=== PATIENT | female | born 1995 | race Caucasian/White ===

== ENCOUNTER 2017-05-03 22:02 | Emergency (ER) | payer SELFPAY ==
[2017-05-04] MEDS ORDERED: AMOXICILLIN TR/POT CLAVULANATE 500-125 MG TAB PO ONE (00:39)
[2017-05-04] MEDS ORDERED: RABIES IMMUNE GLOBULIN INJ/PF 300 UNIT/2 ML SDV IM ONE (00:39)
[2017-05-04] MEDS ORDERED: RABIES VACCINE (PCEC)/PF 2.5 UNIT/1 ML KIT IM ONE (00:45)
--- NOTE | 2017-05-04 00:46 | ER Document Report ---
ED General - General Chief Complaint: Cat bite R thumb Stated Complaint: POSSIBLE ANIMAL BITE Time Seen by Provider: 05/04/17 00:22 Notes: Patient is a 22-year-old female presents with complaint of a cat bite to the right thumb. Patient says a stray cat bit her yesterday. Her thumb hurts and therefore she came to the ER. Nose redness or swelling to the thumb. No fevers. No infections. The cat ran away and therefore she does not where the cat is in therefore we would not know how to contact animal control to quarantine it. She has no other complaints at this time. TRAVEL OUTSIDE OF THE [place] IN LAST 30 DAYS: No - Related Data Allergies/Adverse Reactions: acetaminophen [From [place]] Adverse Reaction (Verified 04/29/16 15:06) hydrocodone [From [place]] Adverse Reaction (Verified 04/29/16 15:06) Past Medical History - Social History Smoking Status: Never Smoker Frequency of alcohol use: None Drug Abuse: None Family History: Reviewed & Not Pertinent, Arthritis, CVA, DM, Hypertension, Malignancy Renal/ Medical History: Denies: Hx Peritoneal Dialysis Musculoskeltal Medical History: Reports Hx Musculoskeletal Trauma - Immunizations Immunizations up to date: Yes Hx Diphtheria, Pertussis, Tetanus Vaccination: Yes - 04/28/16 Review of Systems - Review of Systems Notes: My Normal Review Basic REVIEW OF SYSTEMS: CONSTITUTIONAL : Denies fever, chills, or sweats. Denies recent illness. GASTROINTESTINAL: Denies nausea, vomiting. MUSCULOSKELETAL: Cat Bite to thumb. SKIN: Denies rash or skin lesions. NEUROLOGICAL: Denies sensory or motor loss.. ALL OTHER SYSTEMS REVIEWED AND NEGATIVE. Physical Exam - Vital signs Vitals: Temp Pulse Resp BP Pulse Ox 98.8 F 101 H 20 115/69 99 05/03/17 22:54 05/03/17 22:54 05/03/17 22:54 05/03/17 22:54 05/03/17 22:54 - Notes Notes: General Appearance: Well nourished, alert, cooperative, no acute distress, mild obvious discomfort. Vitals: reviewed, See vital signs table. Extremities: strength 5/5 in all extremities, good pulses in all extremities, patient is a puncture wound on the medial and lateral aspect of the right thumb consistent with Bite. No redness or swelling to the thumb. She is able to flex and extend the thumb but it does have some pain with any type of movement. No redness or streaking into the hand. No foul-smelling drainage. Skin: warm, dry, appropriate color, no rash Neuro: speech clear, oriented x 3, normal affect, responds appropriately to questions. Distal sensation intact. Course - Re-evaluation Re-evalutation: 05/04/17 06:48 Being that this is a straight cath that we do not have access to we will start the patient on rabies vaccinations. She is given her first vaccination and immunoglobulin shot here. I filled out the order for the patient to receive the remaining shots over the next 4 weeks. This is been given to her and she is informed to return to the ER to have the shots performed. I have placed her on Augmentin. Currently she has no signs of infection however being that it is a Bite we have placed on antibiotics. I informed her that even though she is on antibiotics to stool is a risk that she could still develop an infection and therefore she should return to the ER immediately if there is any swelling or redness to the thumb, if she has fevers, or if she has worsening pain. Patient agrees with plan and she will be discharged home. Dictation of this chart was performed using voice recognition software; therefore, there may be some unintended grammatical errors. - Vital Signs Vital signs: Temp Pulse Resp BP Pulse Ox 98.2 F 78 16 115/64 98 05/04/17 01:50 05/04/17 01:50 05/04/17 01:50 05/04/17 01:50 05/04/17 01:50 Discharge - Discharge Clinical Impression: Cat bite Qualifiers: Encounter type: initial encounter Qualified Code(s): W55.01XA - Bitten by cat, initial encounter Condition: Good Disposition: HOME, SELF-CARE Additional Instructions: We have given you the initial rabies shot here. We will require scheduled rabies shot this over the next month. We have given you a form that lays out the days to come back to get these performed. We will have you bring the form with you to the ER and the shots will be given. This is extremely important as these shots help prevent you from requiring rabies. I have placed you on antibiotics to help prevent you from getting infection in your thumb. On rare occasions you can still get infection in your finger despite antibiotics. If you develop any redness or swelling to the finger you must return to the ER immediately. Please return to the ER immediately if you have any fevers. Please follow-up with a doctor in 5-7 days for reevaluation. Prescriptions: Amox Tr/Potassium Clavulanate [Augmentin 255-125 Tablet] 1 tab PO BID 7 Days tablet
[2017-05-04 02:04] VITALS: BP 115/64
== END 2017-05-04 01:50 | disposition home or self-care (01) ==
LOC: ER 22:02
DX: S61.051A Open bite of right thumb without damage to nail, initial encounter (principal); W55.01XA Bitten by cat, initial encounter; Y93.K9 Activity, other involving animal care; Y92.009 Unspecified place in unspecified non-institutional (private) residence as the place of occurrence of the external cause; Z23 Encounter for immunization
CPT/HCPCS: 90376; 90471; 90675; 96372; 99283

== ENCOUNTER 2018-01-27 08:34 | Emergency (ER) | payer SELFPAY ==
[2018-01-27 08:43] VITALS: BP 113/80
[2018-01-27] MEDS ORDERED: IBUPROFEN 600 MG TABLET PO ONE (09:48)
--- NOTE | 2018-01-27 10:06 | ER Document Report ---
ED General Pain - General Chief Complaint: Low Back Pain Stated Complaint: BACK PAIN Time Seen by Provider: 01/27/18 09:17 Information source: Patient Notes: 22-year-old female that presents today with some pain in her sacral region. Patient states she has had this pain intermittently for 4 years since an incident in high school when she sliding to second base playing softball. She has never been evaluated with imaging. She states it occurs about every 3-4 months and last on 4 days. She states it is always to the same area. She denies any fevers, dysuria, incontinence, weakness or numbness. She denies any aggravating or relieving factors other than standing from a seated position. TRAVEL OUTSIDE OF THE [place] IN LAST 30 DAYS: No - HPI Onset: Other - See above Onset/Duration: Gradual Quality of pain: Achy Severity: Moderate Pain Level: 2 Context: Chronic problem Associated symptoms: Other - See above Exacerbated by: Other - See above Relieved by: Other - See above Similar symptoms previously: Yes - Related Data Allergies/Adverse Reactions: acetaminophen [From [place]] Adverse Reaction (Verified 01/27/18 08:38) hydrocodone [From [place]] Adverse Reaction (Verified 01/27/18 08:38) Past Medical History - Social History Smoking Status: Current Every Day Smoker Cigarette use (# per day): No Chew tobacco use (# tins/day): No Smoking Education Provided: No Frequency of alcohol use: None Drug Abuse: Marijuana Family History: Reviewed & Not Pertinent, Arthritis, CVA, DM, Hypertension, Malignancy Patient has suicidal ideation: No Patient has homicidal ideation: No Renal/ Medical History: Denies: Hx Peritoneal Dialysis Musculoskeltal Medical History: Reports Hx Musculoskeletal Trauma - Immunizations Immunizations up to date: Yes Hx Diphtheria, Pertussis, Tetanus Vaccination: Yes - 04/28/16 Physical Exam - Vital signs Vitals: Temp Pulse Resp BP Pulse Ox 99.0 F 94 14 113/80 99 01/27/18 08:40 01/27/18 08:40 01/27/18 08:40 01/27/18 08:40 01/27/18 08:40 Notes: Reviewed vital signs and nursing note as charted by RN. CONSTITUTIONAL: Alert and oriented and responds appropriately to questions. Well -appearing; well-nourished ABD/GI: Normal bowel sounds; non-distended; soft, non-tender, no rebound, no guarding; no palpable organomegaly or masses BACK: With monorail operator present I performed a lower lumbar/sacral coccyx examination. Patient does have some tenderness to palpation around the coccyx region without any swelling, step-offs, erythema, fluctuance, or induration EXT: Normal ROM in all joints; no edema SKIN: Normal color for age and race; no acute lesions noted NEURO: Patient has 5 out of 5 strength bilateral upper and lower extremities with normal 2+ patellar reflexes bilaterally Course - Re-evaluation Re-evalutation: 01/27/18 10:06 Given the above history and physical examination, with the intermittent prolonged symptomatology, with no signs of weakness or numbness, no fevers or vomiting, I will perform a sacral/coccygeal x-ray after a negative test and reassess. If this is unremarkable, I will most likely have the patient follow-up with orthopedics as an outpatient. I do believe given the above that a deep space abscess to be unlikely. 01/27/18 13:15 X-rays recorded. No change in examination. Patient will be discharged home with strict return precautions and follow-up with the local orthopedic surgeon. - Vital Signs Vital signs: Temp Pulse Resp BP Pulse Ox 99.0 F 94 14 113/80 99 01/27/18 08:40 01/27/18 08:40 01/27/18 08:40 01/27/18 08:40 01/27/18 08:40 Discharge - Discharge Clinical Impression: Sacral pain Condition: Good Disposition: HOME, SELF-CARE Additional Instructions: Come back immediately for any increased pain, swelling, fever, weakness or numbness, incontinence, or any other acute problems. Please follow-up with orthopedics as we have discussed. Referrals: DAMARIS SEBASTIAN MD [ACTIVE STAFF] - Follow up as needed
--- NOTE | 2018-01-27 12:58 | RADIOLOGY REPORT (SQ) ---
EXAM DESCRIPTION: SACRUM AND COCCYX COMPLETED DATE/TIME: 01/27/2018 11:52 am REASON FOR STUDY: 13hw; pain negative HCG COMPARISON: None. NUMBER OF VIEWS: Three views. TECHNIQUE: AP, lateral, and tilt views of the sacrum and coccyx. LIMITATIONS: None. FINDINGS: MINERALIZATION: Normal. BONES: No acute fracture or dislocation. No worrisome bone lesions. SOFT TISSUES: No soft tissue swelling. No foreign body. OTHER: No other significant finding. IMPRESSION: NEGATIVE STUDY OF THE SACRUM AND COCCYX. TECHNICAL DOCUMENTATION: JOB ID: [id number] [employer] (formerly [employer])- All Rights Reserved Reading location - IP/workstation name: [email or web address]
== END 2018-01-27 13:34 | disposition home or self-care (01) ==
LOC: ER 08:34
DX: M53.3 Sacrococcygeal disorders, not elsewhere classified (principal); F17.200 Nicotine dependence, unspecified, uncomplicated
CPT/HCPCS: 72220; 81025; 99283

== ENCOUNTER 2018-02-03 21:59 | Emergency (ER) | payer SELFPAY ==
[2018-02-03 22:14] VITALS: BP 121/69
[2018-02-04] MEDS ORDERED: CLINDAMYCIN HCL 150 MG CAPSULE PO ONE (00:04)
[2018-02-04] MEDS ORDERED: LIDOCAINE 1%/EPINEPHRINE INJ 20 ML VIAL INJ ONE (00:05)
--- NOTE | 2018-02-04 00:43 | ER Document Report ---
ED General - General Chief Complaint: Back Pain Stated Complaint: ABSCESS Time Seen by Provider: 02/03/18 23:54 Notes: Patient is a 22-year-old female presents with complaint of swollen and red area over her sacral area that has had some purulent type drainage. She was seen here a few days ago and x-ray. At that time there was not any redness or inflammation. It was unclear exactly was causing her pain. Now she has developed what appears to be an abscess. She denies fevers. No vomiting. She said she has been trying to squeeze it her self. TRAVEL OUTSIDE OF THE [place] IN LAST 30 DAYS: No - Related Data Allergies/Adverse Reactions: acetaminophen [From [place]] Adverse Reaction (Verified 02/04/18 00:05) hydrocodone [From [place]] Adverse Reaction (Verified 02/04/18 00:05) Past Medical History - Social History Smoking Status: Current Every Day Smoker Chew tobacco use (# tins/day): No Frequency of alcohol use: None Drug Abuse: None Family History: Reviewed & Not Pertinent, Arthritis, CVA, DM, Hypertension, Malignancy Patient has suicidal ideation: No Patient has homicidal ideation: No Renal/ Medical History: Denies: Hx Peritoneal Dialysis Musculoskeltal Medical History: Reports Hx Musculoskeletal Trauma - Immunizations Immunizations up to date: Yes Hx Diphtheria, Pertussis, Tetanus Vaccination: Yes - 04/28/16 Review of Systems - Review of Systems Notes: My Normal Review Basic REVIEW OF SYSTEMS: CONSTITUTIONAL : Denies fever, chills, or sweats. Denies recent illness. MUSCULOSKELETAL: Pain over sacral area. SKIN: Redness and swelling over the sacral area. HEMATOLOGIC : Denies easy bruising or bleeding. ALL OTHER SYSTEMS REVIEWED AND NEGATIVE. Physical Exam - Vital signs Vitals: Temp Pulse Resp BP Pulse Ox 98.2 F 86 18 121/69 100 02/03/18 22:13 02/03/18 22:13 02/03/18 22:13 02/03/18 22:13 02/03/18 22:13 - Notes Notes: General Appearance: Well nourished, alert, cooperative, no acute distress, no obvious discomfort. Vitals: reviewed, See vital signs table. Back: Patient has a spinal abscess that has a small pinpoint hole that was already draining. Abscess approximately just under 3 cm in diameter. Erythema is localized to the area of fluctuance. Extremities: strength 5/5 in all extremities, good pulses in all extremities, no swelling or tenderness in the extremities, no edema. Skin: warm, dry, appropriate color, no rash Neuro: speech clear, oriented x 3, normal affect, responds appropriately to questions. Course - Re-evaluation Re-evalutation: 02/04/18 06:01 I did incision drainage of the abscess. Approximately 3 mL's of purulent drainage was expressed. Patient will be placed on clindamycin. She strongly encouraged to return to ER immediately if she has recurrent worsening fevers, redness, or recurrence of swelling or fluctuance. Patient agrees with plan will be discharged home. Dictation of this chart was performed using voice recognition software; therefore, there may be some unintended grammatical errors. - Vital Signs Vital signs: Temp Pulse Resp BP Pulse Ox 98.2 F 86 18 121/69 100 02/03/18 22:13 02/03/18 22:13 02/03/18 22:13 02/03/18 22:13 02/03/18 22:13 Procedures - Incision and Drainage pilonidal Type: Simple Anesthetic type: 1% Lidocaine w/epi Blade size: 11 I&D procedure: Shurclens applied Incision Method: Incision made by scalpel Amount/type of drainage: 3mls of purulent drainage Discharge - Discharge Clinical Impression: Pilonidal abscess Condition: Good Disposition: HOME, SELF-CARE Additional Instructions: ABSCESS: You have an abscess (boil). This a pus-forming infection, usually due to staph. Some boils may be left to drain on their own, but most require lancing. From the time the tender lump first appears, it may be three or four days before the abscess is ready to gay. Local heat and rest help at this stage of treatment. An antibiotic may prevent spread of the infection. Once the abscess is opened, packing may be placed into it. This is done so pus is not sealed inside by premature closure of the cavity. The packing will be removed at your follow-up visit or you may be advised to remove it yourself at home. Sometimes this packing must be replaced a few times during healing. The wound will heal with surprisingly little scar. Depending on the size and location of an abscess, healing can take one to four weeks. You may shower and wash the area around the incision site two or three times a day. Antibiotics may be prescribed, but are usually not necessary after an abscess has been drained. If you develop fever, chills, worsening pain, or increasing swelling in the area, call the doctor or return immediately. POST INCISION AND DRAINAGE: You have had an incision made to allow drainage of an abscess. The incision must remain open so that pus and debris can drain from the wound. If the abscess cavity is large, packing is placed. This keeps the tissues from collapsing and trapping pus inside, while the body shrinks the cavity. The packing may need to be replaced every day or two. The physician will instruct you on the packing. Keep a bulky dressing over the area. Replace it if it becomes saturated with blood or pus. Do not disturb the packing (if present). You may shower and cleanse the area with gentle soap and warm water two or three times a day. Local warmth may be soothing, and may promote faster healing. Return if you develop high fever or chills, or if you note spreading redness, increasing swelling, or increasing tenderness. FOLLOW-UP CARE: Please return to the ER immediately if you have recurrent swelling, fevers, spreading redness, or feel that you are worsening in any way. Please follow up with a doctor or the ER on Thursday for reevaluation to make sure you are healing appropriately. Please change the dressing at least 2-3 times a day. Change more often if it is soaked from drainage. Prescriptions: Clindamycin HCl 300 mg PO ASDIR #56 capsule
== END 2018-02-04 00:51 | disposition home or self-care (01) ==
LOC: ER 21:59
PROC: 0H98XZZ Drainage of Buttock Skin, External Approach (ICD-10-PCS; principal; 2018-02-03)
DX: L05.01 Pilonidal cyst with abscess (principal); M54.9 Dorsalgia, unspecified; F17.200 Nicotine dependence, unspecified, uncomplicated
CPT/HCPCS: 99283; 10080; J3490

== ENCOUNTER 2019-01-15 14:45 | Emergency (ER) | payer SELFPAY ==
[2019-01-15 14:53] VITALS: BP 118/81
--- NOTE | 2019-01-15 15:56 | ER Document Report ---
HPI - HPI Time Seen by Provider: 01/15/19 15:42 Pain Level: 4 Context: Patient is a 23-year-old female who presents the emergency department with a chief complaint of an infected piercing. She had her neck pierced just below her larynx. About a month ago she noticed that it was starting to get infected, therefore she used peroxide and alcohol to help clear the infection. Within the last week she states that it has progressively gotten worse. She denies any fever, chills, body aches, or any other symptoms. Denies any shortness of breath, difficulty breathing. She states that it has been draining. Denies any past medical history. She has had history of abscesses in the past. - CONSTITUTIONAL Constitutional: DENIES: Fever, Chills - EENT EENT: DENIES: Sore Throat, Ear Pain, Nasal Drainage-Clear, Eye problems - NEURO Neurology: DENIES: Headache - CARDIOVASCULAR Cardiovascular: DENIES: Chest pain - RESPIRATORY Respiratory: DENIES: Trouble Breathing, Coughing - GASTROINTESTINAL Gastrointestinal: DENIES: Abdominal Pain - REPRODUCTIVE Reproductive: DENIES: : - MUSCULOSKELETAL Musculoskeletal: DENIES: Extremity pain - DERM Skin Color: Normal Skin Problems: Puncture Wound - From piercing, with purulent drainage Past Medical History - Social History Smoking Status: Current Every Day Smoker Frequency of alcohol use: Occasional Drug Abuse: Marijuana Family History: Reviewed & Not Pertinent, Arthritis, CVA, DM, Hypertension, Malignancy Renal/ Medical History: Denies: Hx Peritoneal Dialysis Musculoskeletal Medical History: Reports Hx Musculoskeletal Trauma - Immunizations Immunizations up to date: Yes Hx Diphtheria, Pertussis, Tetanus Vaccination: Yes - 04/28/16 Vertical Provider Document - CONSTITUTIONAL Agree With Documented VS: Yes Exam Limitations: No Limitations General Appearance: No Apparent Distress - INFECTION CONTROL TRAVEL OUTSIDE OF THE [place] IN LAST 30 DAYS: No - HEENT HEENT: Atraumatic, Normocephalic - NECK Neck: Supple. negative: Normal Inspection - Drained abscess noted to anterior portion of patient's neck - RESPIRATORY Respiratory: Breath Sounds Normal, No Respiratory Distress - CARDIOVASCULAR Cardiovascular: Regular Rate, Regular Rhythm Pulses: Normal: Radial - BACK Back: Normal Inspection - MUSCULOSKELETAL/EXTREMETIES Musculoskeletal/Extremeties: FROM - NEURO Level of Consciousness: Awake, Alert, Appropriate Motor/Sensory: No Motor Deficit, No Sensory Deficit - DERM Integumentary: Warm, Dry, Abscess - Anterior neck, drained on its own. no induration noted. Course - Re-evaluation Re-evalutation: 01/15/19 15:56 Differential diagnosis includes but normal limited to: abscess, dermoid cyst, sebaceous cyst, furnucle, or others. Based on patient's physical exam and history, this is an abscess. It has already drained. There is surrounding cellulitis. I do not believe the patient has underlying necrotizing fasciitis. Based on patient's physical exam and these factors, they will be treated with antibiotics. Verbal discharge instructions were given to the patient. They verbalized understanding. They are stable for discharge. - Vital Signs Vital signs: Temp Pulse Resp BP Pulse Ox 98.2 F 80 16 118/81 98 01/15/19 14:52 01/15/19 14:52 01/15/19 14:52 01/15/19 14:52 01/15/19 14:52 Discharge - Discharge Clinical Impression: Abscess Cellulitis Qualifiers: Site of cellulitis: other site Qualified Code(s): L03.818 - Cellulitis of other sites Condition: Stable Disposition: HOME, SELF-CARE Instructions: Cephalexin ([facility]), Trimethoprim-Sulfa ([facility]) Additional Instructions: You were seen today in the emergency department for an infected piercing. You have been prescribed antibiotics. Please take all your antibiotics as prescribed. [facility] to [facility]. If you have worsening symptoms, develop a fever greater than 100.4 F, noticed the redness swelling, or have any symptoms that are worrisome to you, please return to the emergency department. Prescriptions: Cephalexin [Keflex] 500 mg PO BID #14 capsule Sulfamethoxazole/Trimethoprim [Bactrim Ds Tablet] 1 each PO BID 7 Days #14 tab let
== END 2019-01-15 16:27 | disposition home or self-care (01) ==
LOC: ER 14:45
DX: L02.11 Cutaneous abscess of neck (principal); L03.221 Cellulitis of neck; F17.200 Nicotine dependence, unspecified, uncomplicated; F12.10 Cannabis abuse, uncomplicated
CPT/HCPCS: 99283

== ENCOUNTER 2019-08-01 12:26 | Emergency (ER) | payer SELFPAY ==
[2019-08-01 12:30] VITALS: BP 129/69
[2019-08-01] MEDS ORDERED: CLINDAMYCIN HCL 150 MG CAPSULE PO ONE (12:37)
--- NOTE | 2019-08-01 12:40 | ER Document Report ---
ED Medical Screen (RME) - General Chief Complaint: Rash Stated Complaint: RASH ALL OVER Time Seen by Provider: 08/01/19 12:32 Notes: Patient is a 24-year-old female who presents to the emergency department with a chief complaint of a rash. Patient states that the rashes to her right buttock area. Is that she noticed it about a week ago. Patient reports that she has been having hot/cold flashes at night. Does not know if she has had any actual fever. Patient denies any drug abuse. Exam: Erythematous rash to right medial buttock. Picking noted to face. I have greeted and performed a rapid initial assessment of this patient. A com prehensive ED assessment and evaluation of the patient, analysis of test results and completion of medical decision making process will be conducted by an additional ED providers. TRAVEL OUTSIDE OF THE [place] IN LAST 30 DAYS: No - Related Data Allergies/Adverse Reactions: acetaminophen [From [place]] Adverse Reaction (Verified 01/15/19 14:47) hydrocodone [From [place]] Adverse Reaction (Verified 01/15/19 14:47) Past Medical History Renal/ Medical History: Denies: Hx Peritoneal Dialysis Musculoskeltal Medical History: Reports Hx Musculoskeletal Trauma - Immunizations Immunizations up to date: Yes Hx Diphtheria, Pertussis, Tetanus Vaccination: Yes - 04/28/16 Physical Exam - Vital signs Vitals: Temp Pulse BP Pulse Ox 98.3 F 95 129/69 H 99 08/01/19 12:29 08/01/19 12:29 08/01/19 12:29 08/01/19 12:29 Course - Vital Signs Vital signs: Temp Pulse Resp BP Pulse Ox 98.3 F 95 129/69 H 99 08/01/19 12:29 08/01/19 12:29 08/01/19 12:29 08/01/19 12:29
[2019-08-01 13:24] LABS: ABSOLUTE LYMPHOCYTES (AUTO) 0.5 10^3/uL (0.5-4.7); ABSOLUTE MONOCYTES (AUTO) 0.3 10^3/uL (0.1-1.4); ABSOLUTE NEUT (AUTO) 2.3 10^3/uL (1.7-8.2); BASOPHILS % (AUTO) 0.2 % (0-2); EOSINOPHILS % (AUTO) 0.8 % (0-6); HEMATOCRIT 43.1 % (36.0-47.0); HEMOGLOBIN 14.9 g/dL (12.0-15.5); LYMPHOCYTES % (AUTO) 16.5 % (13-45); MEAN CORPUSCULAR HEMOGLOBIN 31.8 pg (27.0-33.4); MEAN CORPUSCULAR HGB CONC 34.5 g/dL (32.0-36.0); MEAN CORPUSCULAR VOLUME 92 fl (80-97); MONOCYTES % (AUTO) 8.1 % (3-13); PLATELET COUNT 230 10^3/uL (150-450); RED BLOOD COUNT 4.68 10^6/uL (3.72-5.28); RED CELL DISTRIBUTION WIDTH 12.6 % (11.5-14.0); SEGMENTED NEUTROPHILS % (AUTO) 74.4 % (42-78); TOTAL CELLS COUNTED % (AUTO) 100 %; WHITE BLOOD COUNT 3.2 10^3/uL (4.0-10.5)
[2019-08-01 14:00] LABS: ERYTHROCYTE SEDIMENTATION RATE 28 mm/hr (0-20)
[2019-08-01 14:03] LABS: ALBUMIN 4.6 g/dL (3.5-5.0); ALKALINE PHOSPHATASE 74 U/L (38-126); ANION GAP 10 (5-19); ASPARTATE AMINO TRANSFERASE 34 U/L (14-36); BILIRUBIN,DIRECT 0.1 mg/dL (0.0-0.4); BILIRUBIN,TOTAL 0.4 mg/dL (0.2-1.3); BLOOD UREA NITROGEN 8 mg/dL (7-20); CALCIUM 9.8 mg/dL (8.4-10.2); CARBON DIOXIDE 25 mmol/L (22-30); CHLORIDE 106 mmol/L (98-107); GLUCOSE 94 mg/dL (75-110); POTASSIUM 4.4 mmol/L (3.6-5.0); TOTAL PROTEIN 9.2 g/dL (6.3-8.2)
[2019-08-01 14:13] LABS: C-REACTIVE PROTEIN < 5.0 mg/L (<10.0)
[2019-08-01] MEDS ORDERED: CEPHALEXIN 500 MG CAPSULE PO ONE (14:56)
[2019-08-01] MEDS ORDERED: ACYCLOVIR 800 MG TABLET PO ONE (14:56)
[2019-08-01] MEDS ORDERED: GABAPENTIN 100 MG CAPSULE PO ONE (14:56)
[2019-08-01] MEDS ORDERED: SULFAMETHOXAZOLE/TRIMETHOPRIM 800-160 MG TABLET PO ONE (14:56)
--- NOTE | 2019-08-01 14:56 | ER Document Report ---
ED General - General Chief Complaint: Rash Stated Complaint: RASH ALL OVER Time Seen by Provider: 08/01/19 12:32 Notes: 24-year-old female presents emergency department complaining of a steadily progressing rash on her right buttock for the past 4 days. Patient states that it started out as a smaller rash and has now spread across almost her entire right buttock, does not radiate up to her vagina or down her leg. Denies fevers or chills, denies dysuria, denies vaginal discharge. States it is intensely painful but does not itch. States that she has been scratching at it and picking at it. States she thinks it is may be spread slightly to the left side after scratching. Patient has never had a rash like this before. No history of MRSA. Denies sexual activity x1 year, denies sexually transmitted diseases. TRAVEL OUTSIDE OF THE [place] IN LAST 30 DAYS: No - Related Data Allergies/Adverse Reactions: acetaminophen [From [place]] Adverse Reaction (Verified 01/15/19 14:47) hydrocodone [From [place]] Adverse Reaction (Verified 01/15/19 14:47) Past Medical History - General Information source: Patient - Social History Smoking Status: Current Every Day Smoker Frequency of alcohol use: Rare Drug Abuse: Marijuana Family History: Reviewed & Not Pertinent, Arthritis, CVA, DM, Hypertension, Malignancy Patient has suicidal ideation: No Patient has homicidal ideation: No Renal/ Medical History: Denies: Hx Peritoneal Dialysis Musculoskeletal Medical History: Reports Hx Musculoskeletal Trauma - Immunizations Immunizations up to date: Yes Hx Diphtheria, Pertussis, Tetanus Vaccination: Yes - 04/28/16 Review of Systems - Review of Systems Constitutional: No symptoms reported Skin: See HPI -: Yes All other systems reviewed and negative Physical Exam - Vital signs Vitals: Temp Pulse BP Pulse Ox 98.3 F 95 129/69 H 99 08/01/19 12:29 08/01/19 12:29 08/01/19 12:29 08/01/19 12:29 Interpretation: Normal - Notes Notes: GENERAL: Alert, interacts well. No acute distress. HEAD: Normocephalic, atraumatic EYES: Pupils equal, round and reactive to light, extraocular movements intact. ENT: Oral mucosa moist, tongue midline. NECK: Full range of motion, supple, trachea midline. LUNGS: no respiratory distress. ABDOMEN: nondistended EXTREMITIES: Moves all 4 extremities spontaneously, no edema. No cyanosis. NEUROLOGICAL: Alert and oriented x3, normal speech. PSYCH: Normal mood, normal affect. SKIN: Warm, Dry, normal turgor, negative Nikolsky sign, raised erythematous rash to the right buttock, no skin sloughing, some vesicles, some open lesions which are crusted, barely crosses the cleft to the left by 3 mm, this appears to be some secondary bacterial infection rather than a spread of the vesicular rash. Does not travel to the external or internal labia. Course - Re-evaluation Re-evalutation: 08/01/19 15:04 Labs ordered from triage does show slight leukopenia at 3.2, ESR slightly elevated at 28, CRP normal, CMP unremarkable, LFTs normal. Given the vesicular and unilateral nature of this rash I do suspect that it started out as a shingles however it does cross several dermatomes. Also suspect secondary bacterial infection based off of the erythema and picking. Patient will be prescribed acyclovir, Neurontin, Bactrim and Keflex. Discharged home. Patient agreeable to this plan. - Vital Signs Vital signs: Temp Pulse Resp BP Pulse Ox 98.3 F 95 129/69 H 99 08/01/19 12:29 08/01/19 12:29 08/01/19 12:29 08/01/19 12:29 - Laboratory Result Diagrams: 08/01/19 13:00 08/01/19 13:00 Laboratory results interpreted by me: 08/01/19 08/01/19 13:00 13:00 WBC 3.2 L ESR 28 H Total Protein 9.2 H Discharge - Discharge Clinical Impression: Herpes zoster Qualifiers: Herpes zoster complications: without complications Qualified Code(s): B02.9 - Zoster without complications Cellulitis Qualifiers: Site of cellulitis: buttock Qualified Code(s): L03.317 - Cellulitis of buttock Condition: Stable Disposition: HOME, SELF-CARE Additional Instructions: Shingles You have shingles. Shingles is caused by the chicken pox virus, The virus has been surviving dormant in a nerve cell since you had chicken pox years ago. The virus has spread down a nerve root to reach the skin. Typically, an band-like area of pain and skin sensitivity develops, then small blisters erupt in the area. Shingles lasts two or three weeks, but sometimes leaves persistent pain. You are contagious -- you can give children chicken pox. But you can't give anyone shingles. Antiviral medicines (such as acyclovir) can help, but the rash usually worsens for about a week. I have also prescribed Neurontin. This is medication that will help with the pain. Please take 100 mg once a day for the first 3 days then you may increase it to 100 mg twice a day for 2 days if your pain is not controlled and then you may increase it to 100 mg 3 times a day if needed. You may stop it when the pain goes away. Antihistamines such as Benadryl may be necessary for itching if it does not respond to soda baths and calamine lotion. If the area remains severely painful as the sores heal, or if you suspect an infection developing in the sores, see your doctor. Cellulitis You have an infection of your skin and underlying soft tissues called cellulitis. This is due to bacteria, which can enter through any break in the skin, or even through an irritated hair follicle. Untreated, cellulitis will usually worsen. Antibiotics are required. Usually, warm packs or warm soaks, and elevation of the infected area are recommended. You should start getting better within 24 to 36 hours. Most infections respond quickly to the right medication. Follow-up care is important, however, to check for abscess (boil) formation, unsuspected foreign body, or resistant infection. If you develop fever, chills, or if the area of infection is becoming rapidly more swollen or painful, call the doctor at once. Prescriptions: Sulfamethoxazole/Trimethoprim [Bactrim Ds Tablet] 1 each PO BID #10 tablet Cephalexin Monohydrate [Keflex 500 mg Capsule] 1,000 mg PO BID #20 capsule Gabapentin [Neurontin 100 mg Capsule] 100 mg PO ASDIR PRN #30 capsule PRN Reason: Acyclovir [Zovirax 800 mg Tablet] 800 mg PO 5XD #50 tab
== END 2019-08-01 15:10 | disposition home or self-care (01) ==
LOC: ER 12:26
DX: B02.9 Zoster without complications (principal); L03.317 Cellulitis of buttock; R21 Rash and other nonspecific skin eruption; F17.200 Nicotine dependence, unspecified, uncomplicated; Z88.6 Allergy status to analgesic agent
CPT/HCPCS: 36415; 87040; 85025; 85652; 86140; 80053; J3490; 99283

== ENCOUNTER 2020-06-25 21:14 | Emergency (ER) | payer SELFPAY ==
[2020-06-25] MEDS ORDERED: TRAMADOL HCL 50 MG TABLET PO ONE (21:35)
--- NOTE | 2020-06-25 21:37 | ER Document Report ---
ED Medical Screen (RME) - General Chief Complaint: Abscess Stated Complaint: ABSCESS Time Seen by Provider: 06/25/20 21:31 Mode of Arrival: Ambulatory Information source: Patient Notes: 25-year-old female coming in today with an abscess/cyst to the right buttock/perineal region. Has been getting bigger over time and today it finally burst open. No fevers or chills. 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 A comprehensive ED assessment and evaluation of the patient, analysis of test results and completion of the medical decision making process will be conducted by additional ED providers. TRAVEL OUTSIDE OF THE [place] IN LAST 30 DAYS: No - Related Data Allergies/Adverse Reactions: acetaminophen [From [place]] Adverse Reaction (Verified 01/15/19 14:47) hydrocodone [From [place]] Adverse Reaction (Verified 01/15/19 14:47) Past Medical History Renal/ Medical History: Denies: Hx Peritoneal Dialysis Musculoskeltal Medical History: Reports Hx Musculoskeletal Trauma - Immunizations Immunizations up to date: Yes Hx Diphtheria, Pertussis, Tetanus Vaccination: Yes - 04/28/16
[2020-06-25 22:52] LABS: ABSOLUTE LYMPHOCYTES (AUTO) 0.7 10^3/uL (0.5-4.7); ABSOLUTE MONOCYTES (AUTO) 0.4 10^3/uL (0.1-1.4); ABSOLUTE NEUT (AUTO) 3.4 10^3/uL (1.7-8.2); BASOPHILS % (AUTO) 0.1 % (0-2); EOSINOPHILS % (AUTO) 0.2 % (0-6); HEMATOCRIT 36.6 % (36.0-47.0); HEMOGLOBIN 12.5 g/dL (12.0-15.5); LYMPHOCYTES % (AUTO) 15.8 % (13-45); MEAN CORPUSCULAR HEMOGLOBIN 31.5 pg (27.0-33.4); MEAN CORPUSCULAR HGB CONC 34.1 g/dL (32.0-36.0); MEAN CORPUSCULAR VOLUME 92 fl (80-97); MONOCYTES % (AUTO) 8.9 % (3-13); PLATELET COUNT 252 10^3/uL (150-450); RED BLOOD COUNT 3.96 10^6/uL (3.72-5.28); RED CELL DISTRIBUTION WIDTH 12.8 % (11.5-14.0); TOTAL CELLS COUNTED % (AUTO) 100 %; WHITE BLOOD COUNT 4.5 10^3/uL (4.0-10.5)
[2020-06-25 23:08] LABS: ALKALINE PHOSPHATASE 68 U/L (38-126); ANION GAP 7 (5-19); ASPARTATE AMINO TRANSFERASE 36 U/L (14-36); BILIRUBIN,DIRECT 0.3 mg/dL (0.0-0.4); BILIRUBIN,TOTAL 0.4 mg/dL (0.2-1.3); BLOOD UREA NITROGEN 18 mg/dL (7-20); CALCIUM 9.3 mg/dL (8.4-10.2); CARBON DIOXIDE 29 mmol/L (22-30); CHLORIDE 105 mmol/L (98-107); GLUCOSE 88 mg/dL (75-110); POTASSIUM 3.9 mmol/L (3.6-5.0); TOTAL PROTEIN 8.1 g/dL (6.3-8.2)
[2020-06-26 01:35] VITALS: BP 106/57
--- NOTE | 2020-06-26 02:11 | ER Document Report ---
ED General - General Chief Complaint: Abscess Stated Complaint: ABSCESS Time Seen by Provider: 06/25/20 21:31 Primary Care Provider: [facility] [Provider Group] - Follow up as needed Mode of Arrival: Ambulatory TRAVEL OUTSIDE OF THE [place] IN LAST 30 DAYS: No - HPI Notes: Patient is a 25-year-old female with no significant medical history who presents with an abscess to her right buttock. Patient states she noticed a small bump to the area about a year ago but 3 days ago she noticed that it was significantly larger. She states it popped this morning and has been draining all day. She reports tenderness to the area. She denies fever, chills, nausea, and vomiting. Patient is a everyday smoker and smokes about 1/2 pack a day. Patient denies alcohol and recreational drug use. - Related Data Allergies/Adverse Reactions: acetaminophen [From [place]] Adverse Reaction (Verified 01/15/19 14:47) hydrocodone [From [place]] Adverse Reaction (Verified 01/15/19 14:47) Past Medical History - General Information source: Patient - Social History Smoking Status: Current Every Day Smoker Frequency of alcohol use: None Drug Abuse: None Family History: Reviewed & Not Pertinent, Arthritis, CVA, DM, Hypertension, Yesy gnancy Renal/ Medical History: Denies: Hx Peritoneal Dialysis Musculoskeletal Medical History: Reports Hx Musculoskeletal Trauma - Immunizations Immunizations up to date: Yes Hx Diphtheria, Pertussis, Tetanus Vaccination: Yes - 04/28/16 Review of Systems - Review of Systems Constitutional: No symptoms reported EENT: No symptoms reported Cardiovascular: No symptoms reported Respiratory: No symptoms reported Gastrointestinal: No symptoms reported Genitourinary: No symptoms reported Female Genitourinary: No symptoms reported Musculoskeletal: No symptoms reported Skin: See HPI Hematologic/Lymphatic: No symptoms reported Neurological/Psychological: No symptoms reported Physical Exam - Vital signs Vitals: Temp Pulse Resp BP Pulse Ox 97.8 F 65 16 106/57 L 99 06/26/20 01:19 06/26/20 01:19 06/26/20 01:19 06/26/20 01:19 06/26/20 01:19 - Notes Notes: PHYSICAL EXAMINATION: GENERAL: Well-appearing, well-nourished and in no acute distress. HEAD: Atraumatic, normocephalic. EYES: sclera anicteric, conjunctiva are normal. ENT: Moist mucous membranes. NECK: Normal range of motion LUNGS: Normal work of breathing HEART: 2+ radial pulses bilaterally EXTREMITIES: no pitting or edema. No cyanosis. NEUROLOGICAL: No focal neurological deficits. Moves all extremities spontaneously and on command. PSYCH: Normal mood, normal affect. SKIN: Draining abscess to the right inner buttock with small area of surrounding erythema and warmth. Warm, Dry, normal turgor, no rashes or lesions noted. Course - Re-evaluation Re-evalutation: Patient is a 25-year-old female who presents with a draining abscess to right buttock. Patient states the abscess worsened 3 days ago and began draining this morning. Vital signs are within normal limits. On exam, patient has a 3 cm area of erythema with a area of drainage in the center. I pressed on the area to express more drainage. Small amount of bloody with minimal purulence was expressed. Patient will be discharged home with a prescription for Bactrim. Patient instructed to clean the area regularly and use warm compresses. Return precautions and follow-up instructions given. Patient understands and agrees with plan. - Vital Signs Vital signs: Temp Pulse Resp BP Pulse Ox 97.8 F 65 16 106/57 L 99 06/26/20 01:19 06/26/20 01:19 06/26/20 01:19 06/26/20 01:19 06/26/20 01:19 - Laboratory Result Diagrams: 06/25/20 22:43 06/25/20 22:43 Discharge - Discharge Clinical Impression: Abscess Condition: Stable Disposition: HOME, SELF-CARE Additional Instructions: Abscess You have an abscess (boil). This a pus-forming infection, usually due to staph. Some boils may be left to drain on their own, but most require lancing. From the time the tender lump first appears, it may be three or four days before the abscess is ready to gay. Local heat and rest help at this stage of treatment. An antibiotic may prevent spread of the infection. Once the abscess is opened, packing may be placed into it. This is done so pus is not sealed inside by premature closure of the cavity. The packing will be removed at your follow-up visit or you may be advised to remove it yourself at home. Sometimes this packing must be replaced a few times during healing. The wound will heal with surprisingly little scar. Depending on the size and location of an abscess, healing can take one to four weeks. You may shower and wash the area around the incision site two or three times a day. Antibiotics may be prescribed, but are usually not necessary after an abscess has been drained. If you develop fever, chilling, worsening pain, or increasing swelling in the area, call the doctor or return immediately. Prescriptions: Sulfamethoxazole/Trimethoprim [Bactrim Ds Tablet] 1 tab PO BID 7 Days #14 tablet Referrals: [facility] [Provider Group] - Follow up as needed
== END 2020-06-26 02:46 | disposition home or self-care (01) ==
LOC: ER 21:14
DX: L02.31 Cutaneous abscess of buttock (principal); F17.210 Nicotine dependence, cigarettes, uncomplicated; Z88.6 Allergy status to analgesic agent
CPT/HCPCS: 36415; 80053; 85025; 99283

== ENCOUNTER 2020-08-13 04:59 | Emergency (ER) | payer SELFPAY ==
[2020-08-13] MEDS ORDERED: NORMAL SALINE 1000 ML 1,000 ML IV ONE ×2 (05:15→08:09)
--- NOTE | 2020-08-13 05:17 | ER Document Report ---
ED Medical Screen (RME) - General Chief Complaint: Overdose Stated Complaint: POSSIBLE OD Time Seen by Provider: 08/13/20 05:11 Mode of Arrival: Medic Information source: Emergency Med Personnel Cannot obtain history due to: Altered mental status TRAVEL OUTSIDE OF THE [place] IN LAST 30 DAYS: No - HPI Context: Patient is a 25-year-old female presenting for evaluation of altered mental status after taking a unknown amount of Xanax and Percocet. Patient was reportedly last seen awake at 0200 hrs. today. Patient was given 5 mg of Narcan by EMS. Patient is still lethargic and moaning. However patient is managing her secretions and currently is protecting her airway. This provider did a initial RME on the patient and has put in orders to start evaluation of the patient. Further management of the patient will be handled by the oncoming provider. Associated Symptoms: Other - Unknown - Related Data Allergies/Adverse Reactions: acetaminophen [From [place]] Adverse Reaction (Verified 01/15/19 14:47) hydrocodone [From [place]] Adverse Reaction (Verified 01/15/19 14:47) Past Medical History - Social History Drug Abuse: Other Renal/ Medical History: Denies: Hx Peritoneal Dialysis Musculoskeltal Medical History: Reports Hx Musculoskeletal Trauma - Immunizations Immunizations up to date: Yes Hx Diphtheria, Pertussis, Tetanus Vaccination: Yes - 04/28/16 Physical Exam - Vital signs Vitals: Pulse Resp Pulse Ox 106 H 20 97 08/13/20 05:07 08/13/20 05:07 08/13/20 05:07 - Notes Notes: General patient is laying in bed, protecting airway, appears lethargic, has pinpoint pupils bilaterally, is tachycardic, head is clear breath sounds and no obvious evidence of trauma. Course - Vital Signs Vital signs: Temp Pulse Resp BP Pulse Ox 101.0 F H 106 H 20 103/60 97 08/13/20 05:09 08/13/20 05:07 08/13/20 05:07 08/13/20 05:09 08/13/20 05:07 - Laboratory Result Diagrams: 08/13/20 05:05 08/13/20 05:05
[2020-08-13 05:40] LABS: ABSOLUTE EOSINOPHILS # (AUTO) 0.1 10^3/uL (0.0-0.6); ABSOLUTE LYMPHOCYTES (AUTO) 1.4 10^3/uL (0.5-4.7); ABSOLUTE MONOCYTES (AUTO) 0.3 10^3/uL (0.1-1.4); ABSOLUTE NEUT (AUTO) 5.4 10^3/uL (1.7-8.2); BASOPHILS % (AUTO) 0.3 % (0-2); EOSINOPHILS % (AUTO) 0.9 % (0-6); HEMATOCRIT 35.9 % (36.0-47.0); HEMOGLOBIN 12.1 g/dL (12.0-15.5); LYMPHOCYTES % (AUTO) 19.1 % (13-45); MEAN CORPUSCULAR HEMOGLOBIN 31.2 pg (27.0-33.4); MEAN CORPUSCULAR HGB CONC 33.7 g/dL (32.0-36.0); MEAN CORPUSCULAR VOLUME 93 fl (80-97); MONOCYTES % (AUTO) 3.8 % (3-13); PLATELET COUNT 180 10^3/uL (150-450); RED BLOOD COUNT 3.87 10^6/uL (3.72-5.28); RED CELL DISTRIBUTION WIDTH 13.3 % (11.5-14.0); SEGMENTED NEUTROPHILS % (AUTO) 75.9 % (42-78); TOTAL CELLS COUNTED % (AUTO) 100 %; WHITE BLOOD COUNT 7.2 10^3/uL (4.0-10.5)
[2020-08-13 05:43] LABS: APPEARANCE,URINE SLIGHTLY-CLOUDY; BILIRUBIN,URINE NEGATIVE (NEGATIVE); COLOR,URINE YELLOW; GLUCOSE, URINE >=500 mg/dL (NEGATIVE); KETONES,URINE NEGATIVE (NEGATIVE); LEUKOCYTE ESTERASE,URINE NEGATIVE (NEGATIVE); NITRITE,URINE NEGATIVE (NEGATIVE); PROTEIN,URINE 100 mg/dL (NEGATIVE); URINE SPECIFIC GRAVITY 1.013; UROBILINOGEN,URINE NEGATIVE mg/dL (<2.0)
[2020-08-13 05:49] LABS: ALBUMIN 4.2 g/dL (3.5-5.0); ALKALINE PHOSPHATASE 91 U/L (38-126); ANION GAP 11 (5-19); ASPARTATE AMINO TRANSFERASE 38 U/L (14-36); BILIRUBIN,DIRECT 0.2 mg/dL (0.0-0.4); BILIRUBIN,TOTAL 0.3 mg/dL (0.2-1.3); BLOOD UREA NITROGEN 10 mg/dL (7-20); CALCIUM 9.3 mg/dL (8.4-10.2); CARBON DIOXIDE 27 mmol/L (22-30); CHLORIDE 103 mmol/L (98-107); GLUCOSE 197 mg/dL (75-110); TOTAL PROTEIN 8.3 g/dL (6.3-8.2)
[2020-08-13 05:58] LABS: URINE AMPHETAMINES SCREEN NEGATIVE; URINE BARBITURATES SCREEN NEGATIVE; URINE BENZODIAZEPINES SCREEN UNCONFIRMED POSITIVE; URINE COCAINE SCREEN NEGATIVE; URINE MARIJUANA (THC) SCREEN UNCONFIRMED POSITIVE; URINE METHADONE SCREEN NEGATIVE; URINE PHENCYCLIDINE SCREEN NEGATIVE
[2020-08-13 05:58] LABS: ACETAMINOPHEN < 10 ug/mL (10-30); ALCOHOL < 10 mg/dL (NONE DETECTED); SALICYLATE < 1.0 mg/dL (2.0-20.0)
--- NOTE | 2020-08-13 06:25 | ER Document Report ---
ED General <FADY DELCID - Last Filed: 08/13/20 15:38> - General Mode of Arrival: Medic TRAVEL OUTSIDE OF THE [place] IN LAST 30 DAYS: No <KHOAGALILEOALCIRA Kuo - Last Filed: 08/13/20 16:08> - General Chief Complaint: Overdose Stated Complaint: POSSIBLE OD Time Seen by Provider: 08/13/20 05:11 Primary Care Provider: [facility] [Outside] - Follow up as needed [facility] [Outside] - Follow up as needed [facility] [Outside] - Follow up as needed - [facility] Notes: Patient is a 25-year-old female brought in the emergency department for evaluation of an apparent overdose. Patient was at her mother's house. She left at home last night at approximately 2200 hrs. She came back several hours later, mother could clearly tell she was severely intoxicated. She would not talk very much, was struggling to stand. Mother put her to bed, with her, with the hopes that she could "sleep it off." She woke up 2 hours later and found her on the floor in the kitchen. She apparently sat down under her own power. She would not talk, would not rales. At that point mother called 911. EMS administered Narcan. According to the mother the patient has had multiple DWIs and arrests for drug use. She has expressed some interest in going to rehab. They were looking into it, but she believes she needs to go sooner rather than later. The patient herself offers needle very little in the way of history. She admits to snorting pills, which she has done in the past. She denies use of any injection drugs. She denies any suicidality. She denies any pain. The only words she will say to me is "I am cold." Otherwise she does answer the remainder of my questions appropriately. (ALCIRA MOON) - Related Data Allergies/Adverse Reactions: acetaminophen [From [place]] Adverse Reaction (Verified 01/15/19 14:47) hydrocodone [From [place]] Adverse Reaction (Verified 01/15/19 14:47) Past Medical History - General Information source: Parent, Emergency Med Personnel - Social History Smoking Status: Current Every Day Smoker Drug Abuse: Marijuana, Prescription drugs, Other Family History: Reviewed & Not Pertinent, Arthritis, CVA, DM, Hypertension, Malignancy Patient has homicidal ideation: No Renal/ Medical History: Denies: Hx Peritoneal Dialysis Musculoskeletal Medical History: Reports Hx Musculoskeletal Trauma - Immunizations Immunizations up to date: Yes Hx Diphtheria, Pertussis, Tetanus Vaccination: Yes - 04/28/16 <ALCIRA MOON - Last Filed: 08/13/20 16:08> Review of Systems - Review of Systems Constitutional: No symptoms reported EENT: No symptoms reported Cardiovascular: No symptoms reported Respiratory: No symptoms reported Gastrointestinal: No symptoms reported Genitourinary: No symptoms reported - Basically Musculoskeletal: No symptoms reported - to tactile stimuli Skin: No symptoms reported Neurological/Psychological: See HPI <ALCIRA MOON - Last Filed: 08/13/20 16:08> Physical Exam <ALCIRA MOON - Last Filed: 08/13/20 16:08> - Vital signs Vitals: Pulse Ox 98 08/13/20 05:00 - Notes Notes: Is a drowsy 25-year-old female who appears her stated age. She is sleeping comfortably in the room. She does arouse to tactile stimuli. She follows commands. Vital signs reviewed, please refer to chart. Head is normocephalic, atraumatic. Pupils equal round, reactive to light, 5 mm in diameter. Neck is supple without meningismus. Heart is regular rate and rhythm. Lungs are clear to auscultation bilaterally. Abdomen is soft, nontender, normoactive bowel sounds throughout. Extremities without cyanosis, clubbing. Posterior calves are nontender. Peripheral pulses are equal. Skin is warm and dry. Patient is drowsy, exhibits slurred speech. She moves all 4 extremities spontaneously, no gross facial asymmetry. (ALCIRA MOON) Course - Laboratory Result Diagrams: 08/13/20 05:05 08/13/20 05:05 <FADY DELCID - Last Filed: 08/13/20 15:38> - Laboratory Result Diagrams: 08/13/20 05:05 08/13/20 05:05 - Diagnostic Test Radiology reviewed: Image reviewed, Reports reviewed <ALCIRA MOON - Last Filed: 08/13/20 16:08> - Re-evaluation Re-evalutation: 08/13/20 06:24 Patient presents to the emergency department for evaluation. She was an apparent overdose. She is drowsy, tachycardic, borderline hypotensive. Otherwise her vitals are unremarkable. She is currently being administered a liter normal saline, will await response. Her drug screen is positive. The remainder of her labs are unremarkable. Patient voices interest in attending some sort of rehab facility. Will place psychosocial consult. 08/13/20 07:29 Patient does have a mild fever. Given IV fluids, Tylenol. Blood cultures ordered. Chest x-ray ordered. Her urinalysis is unremarkable. At this point she is not being very forthcoming in history, so I am unable to glean as to whe re the rest of her symptoms may have come from. We will continue to monitor. 08/13/20 10:06 I went back to talk to mom about findings. I explained to her that at this point I do not have a clear etiology for her fever, would recommend Covid testing, but would likely discuss possibility of follow-up as an outpatient and referral onto detox enters. Mom states that she does not feel safe taking her home. She states she believes her to be a significant danger to herself. She states that the patient has said she does not want to be alive. The last time she was apprehended for DWI it took several police to calm her. She believes she is an active danger to herself, perhaps to others. Psychosocial consult placed. At this time patient is resting comfortably, her vitals have improved. We will continue to monitor. 08/13/20 14:49 Patient's blood pressures have been borderline here in the emergency department for some time, but a manual pressure verifies that she is in fact normotensive. She was ambulatory. She is hungry. At this point, she has had a fever, but she is otherwise medically cleared. Psychosocial evaluation in place. 08/13/20 16:06 I went back into reevaluate the patient. She has no nuchal rigidity. She is awake and alert. She is afebrile. She has no acute complaints or concerns. She wants to be discharged. Her only issue is that she states her "IV hurts." She was cleared from psychosocial team for discharge into the community. She is to follow-up closely with primary care, she is given resources in regards to outpatient treatment substance abuse treatment. Otherwise, the patient was told that no clear etiology was found for her fever. Blood cultures and urine cultures are pending. She will be contacted if these become positive, and she states that we do have a good phone number to reach out to her. Otherwise, she is to return to the ED with worsening or new concerning symptoms of any sort. (ALCIRA MOON) - Vital Signs Vital signs: Temp Pulse Resp BP Pulse Ox 98.9 F 106 H 17 110/68 95 08/13/20 09:44 08/13/20 05:07 08/13/20 12:00 08/13/20 14:49 08/13/20 12:00 - Laboratory Laboratory results interpreted by me: 08/13/20 08/13/20 08/13/20 05:05 05:05 05:22 Hct 35.9 L Glucose 197 H AST 38 H Total Protein 8.3 H Urine Protein 100 H Urine Glucose (UA) >=500 H Salicylates < 1.0 L Acetaminophen < 10 L - Diagnostic Test Radiology results interpreted by me: 08/13/20 10:08 Chest X-Ray 08/13/20 07:29 IMPRESSION: Mild asymmetric expansion of the left lung as compared to the right as described. No consolidation. (ALCIRA MOON) - EKG Interpretation by Me Additional EKG results interpreted by me: 08/13/20 10:07 Sinus tachycardia with a rate of 104 bpm. Normal axis intervals. T wave inversions anterior leads concerning for ischemia versus normal variant. No studies available for comparison. No ST elevation concerning for infarction. (ALCIRA MOON) Discharge <FADY DELCID - Last Filed: 08/13/20 15:38> <ALCIRA MOON - Last Filed: 08/13/20 16:08> - Discharge Clinical Impression: Polysubstance abuse, Overdose, Fever Condition: Stable Disposition: HOME, SELF-CARE Instructions: Fever (OM), Narcotic Abuse (OM) Additional Instructions: You have been evaluated by both medical and behavioral health teams for accidental overdose. You have been deemed appropriate for discharge. While in the emergency department you received the following services/or had access to: Medical screening and assessment, nursing services, dietary services, pharmacological services, one-on-one counseling and/or psychotherapy, environmental services, and continuous observation by a patient safety engineer . Medication recommendations per [facility] contracted psychiatrist, Dr. Osiel ANDRE, are as follows: start Thorazine 25mg three times a day and Buspar 5mg twice a day You should take these medications as prescribed until you follow up with your outpatient medication provider/ get into a detox facility unless you experience negative side effects then return to the emergency department. Depression Your evaluation reveals that you have mental depression. While symptoms may be vague, they often include disturbance of sleep, fatigue, loss of appetite, and general loss of interest in life. While depression may be a side effect of drugs, or a reaction to a major change in your life, many cases have no known cause. If depression is acute, and related to a major loss in your life, you can expect it to clear completely with time. If you have been depressed a long time, are prone to repeated bouts of depression or low mood, or have been thinking of suicide, get help. Depression can be treated with anti-depressant medication and counselling. Long-term depression will often take a few weeks to clear, even with appropriate medication. Follow-up care is important. Contact your physician, the hospital emergency center, crisis line, or your counsellor if you are losing control or having self-destructive thoughts. NARCOTIC / OPIOD ABUSE: Narcotics and opiods are pain-relieving drugs that are often abused. They are addicting. Narcotics cause euphoria, but it often takes increasing amounts to "feel good" and avoid withdrawal symptoms. Overdose of narcotics causes small pupils, coma, and decreased breathing. It's a common cause of . Purity of street narcotics is unpredictable. Injection of narcotics is risky for abscesses, endocarditis (heart infection), pneumonia, and AIDS. Withdrawal from narcotics causes goose bumps, watery mouth, sweating, nasal congestion, muscle aches, abdominal cramps, vomiting, and diarrhea. There's often restlessness and confusion. Treatment programs are available, but you must make the decision to quit. Medication (such as clonidine) can be prescribed to control the symptoms of withdrawal. OVERDOSE / INGESTION: You have taken more medication than you should have. After your evaluation and care, it is felt that your overdose is not likely to be harmful or of any significant consequences to you and you are being discharged. Although your overdose does not seem to be of any danger to you at this time, if you develop any unusual or unexpected symptoms after your discharge, you should return to the Emergency Department immediately for re-evaluation. Medication recommendations per [facility] contracted psychiatrist, Dr. Osiel ANDRE, are as follows: start Thorazine 25mg 3 times a day and start Buspar 5mg 2 times a day You should take these medications as prescribed until you follow up with your outpatient medication provider unless you experience negative side effects then return to the emergency department. Follow up care: You are currently not involved in outpatient therapy or medication management. You are recommended to follow up with outpatient provider and start outpatient therapy and medication management. You have been given a community outpatient referral list to include phone numbers for [facility] and [facility]. You were also given a resource sheet for detox and substance abuse facilities in the area. [facility] was called and a voluntary bed is available. You are highly encouraged to call [facility] and follow up with detox upon discharging from [facility]. A bed was not put on hold, as being voluntary, you will need to call for yourself to reserve a bed. If you experience worsening or a significant change in your symptoms, notify the physician immediately, utilize mobile crisis, or return to the Emergency Department at any time for re-evaluation. Dr. Rubi was consulted to care management of this patient; attending physicians in agreement with recommendations and disposition. Referrals: [facility] [Outside] - Follow up as needed [facility] [Outside] - Follow up as needed [facility] [Outside] - Follow up as needed
--- NOTE | 2020-08-13 06:38 | EKG REPORT ---
SEVERITY:- BORDERLINE ECG - SINUS TACHYCARDIA BORDERLINE T ABNORMALITIES, ANT-LAT LEADS : Confirmed by: Dominik Forman MD 13-Aug-2020 06:37:28
[2020-08-13] MEDS ORDERED: ACETAMINOPHEN 325 MG TABLET PO ONE (07:29)
--- NOTE | 2020-08-13 08:14 | RADIOLOGY REPORT (SQ) ---
EXAM DESCRIPTION: CHEST SINGLE VIEW IMAGES COMPLETED DATE/TIME: 08/13/2020 7:54 am REASON FOR STUDY: fever COMPARISON: None. EXAM PARAMETERS: NUMBER OF VIEWS: One view. TECHNIQUE: Single frontal radiographic view of the chest acquired. RADIATION DOSE: NA LIMITATIONS: None. FINDINGS: LUNGS AND PLEURA: Slight hyperexpansion of the left lung field compared to the right. Thi s could be congenital. No consolidation or effusions. MEDIASTINUM AND HILAR STRUCTURES: No masses. Contour normal. HEART AND VASCULAR STRUCTURES: Heart normal in size. Normal vasculature. BONES: No acute findings. HARDWARE: None in the chest. OTHER: No other significant finding. IMPRESSION: Mild asymmetric expansion of the left lung as compared to the right as described. No co nsolidation. TECHNICAL DOCUMENTATION: JOB ID: [id number] [employer]- All Rights Reserved Reading location - IP/workstation name: [email or web address]
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
[2020-08-13] MEDS ORDERED: BUSPIRONE HCL 10 MG TABLET PO SCH (15:15)
[2020-08-13 16:33] VITALS: BP 112/61
[2020-08-13] MEDS ORDERED: CHLORPROMAZINE HCL 25 MG TABLET PO SCH (22:00)
== END 2020-08-13 16:34 | disposition home or self-care (01) ==
LOC: ER 04:59
DX: T50.911A Poisoning by multiple unspecified drugs, medicaments and biological substances, accidental (unintentional), initial encounter (principal); F19.10 Other psychoactive substance abuse, uncomplicated; R50.9 Fever, unspecified; Y92.000 Kitchen of unspecified non-institutional (private) residence as the place of occurrence of the external cause; Z79.899 Other long term (current) drug therapy; F17.200 Nicotine dependence, unspecified, uncomplicated
CPT/HCPCS: 93005; 99285; 96360; 96361; 36415; 87040; 80307 ×4; 85025; 81025; 87077; 80053; 81001; 71045; 93010; J7030